=== PATIENT | male | born 1990 | race Caucasian/White ===

== ENCOUNTER 2019-04-02 12:54 | Emergency (ER) | payer BC, OTHER ==
[2019-04-02 13:09] VITALS: BP 147/78; PULSE 72; RESP 18; TEMP 98.1; O2SAT 99
--- NOTE | 2019-04-02 13:17 | ED PDOC ---
Lower Extremity Pain/Injury Time Seen by Provider: 04/02/19 13:03 Chief Complaint (Nursing): Lower Extremity Problem/Injury History Per: Patient Additional Complaint(s): Pt. states he injured the R knee 8 years ago and has since experienced intermittent pain to the inner portion of the R knee. Yesterday he twisted the R knee going up some stairs but did not experience any blunt trauma. Of note, pt. states he has never sought medical attention for R knee pain in the past up until today. Denies numbness, tingling, other injury, fever, chills. Past Medical History Reviewed: Historical Data, Nursing Documentation, Vital Signs Vital Signs: Last Vital Signs Temp 98.1 F 04/02/19 13:02 Pulse 72 04/02/19 13:02 Resp 18 04/02/19 13:02 BP 147/78 04/02/19 13:02 Pulse Ox 99 04/02/19 13:02 Primary Care Provider: FAMILY PROVIDER,NO - Surgical History Surgical History: Cholecystectomy - Family History Family History: States: No Known Family Hx - Home Medications Home Medications: Ambulatory Orders Medication Instructions Recorded Cyclobenzaprine HCl [Flexeril] 10 mg PO TID #21 tab 11/02/15 Naproxen 500 mg PO Q12 #20 tab 11/02/15 - Allergies Allergies/Adverse Reactions: Allergies Allergy/AdvReac Type Severity Reaction Status Date / Time No Known Allergies Allergy Verified 11/02/15 12:10 Review of Systems ROS Statement: Except As Marked, All Systems Reviewed And Found Negative Physical Exam - Physical Exam Appears: Positive for: Well, Non-toxic, No Acute Distress Skin: Positive for: Normal Color, Warm. Negative for: Rash Eye Exam: Positive for: Normal appearance Pulses-Dorsalis Pedis (L): 2+ Pulses-Dorsalis Pedis (R): 2+ Extremity: Positive for: Other (R knee without tenderness, swelling, deformity, warmth, erythema, break in skin integrity, lesions, joint laxity; negative anterior draw sign of R knee; FROM actively of R knee). Negative for: Calf Tenderness (b/l) Neurological/Psych: Positive for: Awake, Alert, Oriented (x3), Gait (steady, unassisted) - ECG O2 Sat by Pulse Oximetry: 99 - Progress ED Course And Treament: Pt. informed that he needs to see an orthopedist and may eventually need an MRI. Pt. was offered knee x-ray but refused. Informed that although his injury is not most consistent with a fracture due to lack of blunt trauma an avulsion fracture is still possible. Pt. still refused knee x-ray. Also informed that he requires a knee immobilizer and crutches which he also refused. Informed that they are required to stabilize the joint and prevent further injury. Pt. still refused despite clear explanation. Advised to f/u with orthopedist for further evaluation. Pt. verbalized correct understanding of plan and instructions and risks of not abiding by recommendations. Pt. is requesting a work note. Disposition - Clinical Impression Clinical Impression: Knee injury - Patient ED Disposition Is Patient to be Admitted: No - Disposition Referrals: [facility] [place] [Outside] [facility] [Outside] Otto Sanchez MD [Staff Provider] - Disposition: Routine/Home Disposition Time: 13:16 Condition: STABLE Additional Instructions: FOLLOW UP WITH ORTHOPEDIST FOR FURTHER EVALUATION RETURN TO ED IMMEDIATELY IF SYMPTOMS WORSEN [facility], thank you for letting us take care of you today. Your provider was Prince Barron MD and you were treated for RT KNEE INJURY. The emergency medical care you received today was directed at your acute symptoms. If you were prescribed any medication, please fill it and take as directed. It may take several days for your symptoms to resolve. Return to the Emergency Department if your symptoms worsen, do not improve, or if you have any other problems. Please contact your doctor or call one of the physicians/clinics you have been referred to that are listed on the Patient Visit Information form that is included in your discharge packet. Bring any paperwork you were given at discharge with you along with any medications you are taking to your follow up visit. Our treatment cannot replace ongoing medical care by a primary care provider outside of the emergency department. Thank you for allowing the [email or web address] team to be part of your care today. If you had an X-Ray or CT scan: A Radiologist will review the ED reading if any change in treatment is needed we will contact you. If you had a blood, urine, or wound culture: It will take several days for the results, if any change in treatment is needed we will contact you. If you had an STI test: It will take 48 hours for the results. Please call after 1 week if you have not heard back. Instructions: Knee Pain (DC) Forms: [facility] ([place]), [facility] ED School/Work Excuse Print Language: DANISH
== END 2019-04-02 14:10 | disposition home or self-care (01) ==
LOC: H.ER 12:54
DX: S89.91XA Unspecified injury of right lower leg, initial encounter (principal); X50.9XXA Other and unspecified overexertion or strenuous movements or postures, initial encounter; Y92.89 Other specified places as the place of occurrence of the external cause